=== PATIENT | male | born 1965 | race Caucasian/White ===

== ENCOUNTER 2019-03-23 16:35 | Emergency (ER) | payer BC ==
[~2019-03-23] VITALS: Ht 170.2 cm; Wt 96.2 kg
[2019-03-23 16:43] VITALS: Ht 170.2 cm; Wt 96.2 kg
[2019-03-23 18:24] VITALS: BP 149/97
== END 2019-03-23 18:24 | disposition home or self-care (01) ==
LOC: ED 16:35
DX: M54.12 Radiculopathy, cervical region (principal); J45.909 Unspecified asthma, uncomplicated; I10 Essential (primary) hypertension
CPT/HCPCS: J1885; J3490